=== PATIENT | male | born 1975 | race Caucasian/White ===

== ENCOUNTER → 2018-10-12 | Outpatient (CLI) | payer OTHER ==
[2018-10-12 09:39] LABS: HCT 47.4 % (39.0-53.0); HGB 15.9 gm/dL (13.0-17.5); MCH 30.9 pg (25.0-35.0); MCHC 33.6 g/dL (31.0-37.0); Mean Platelet Volume 6.2; Platelet Count 396 k/uL (150-450); RBC 5.15 m/uL (4.30-5.90); WBC 8.2 k/uL (3.8-10.6)
[2018-10-12 17:11] LABS: Albumin 4.9 g/dL (3.80-4.90); Albumin/Globulin Ratio 2.13 (1.20-2.10); Anion Gap 8.9 mmol/L (4.00-12.00); Calcium 9.8 mg/dL (8.7-10.3); Carbon Dioxide 24.1 mmol/L (21.6-31.8); Globulin 2.3 g/dL (2.1-3.7); Potassium 4.4 mmol/L (3.5-5.5); Total Bilirubin 1.2 mg/dL (0.2-1.2); Total Protein 7.2 g/dL (6.2-8.2)
== END | disposition home or self-care (01) ==
LOC: LABWHC1 08:33
PROVIDERS: ATTEND Family Medicine
DX: Z00.00 Encounter for general adult medical examination without abnormal findings (principal)
CPT/HCPCS: 36415; 80053; 80061; 84153; 85027

== ENCOUNTER → 2020-10-30 | Outpatient (CLI) | payer MEDICAID ==
[2020-10-30 08:40] LABS: HCT 49.9 % (39.0-53.0); HGB 17.4 gm/dL (13.0-17.5); MCH 32.4 pg (25.0-35.0); MCHC 34.9 g/dL (31.0-37.0); MCV 92.8 fL (80.0-100.0); Mean Platelet Volume 6.3; Platelet Count 376 k/uL (150-450); RBC 5.37 m/uL (4.30-5.90); RDW 12.5 % (11.5-15.5); WBC 9.6 k/uL (3.8-10.6)
[2020-10-30 17:03] LABS: African American GFR (CKD) 119.1 (60.0-200.0); Albumin/Globulin Ratio 1.92 (1.60-3.17); Anion Gap 7.4 mmol/L (4.00-12.00); BUN/Creat Ratio 12.22 Ratio (12.00-20.00); Calcium 9.7 mg/dL (8.7-10.3); Carbon Dioxide 26.6 mmol/L (21.6-31.8); Chol/HDL Ratio 3.63; Globulin 2.6 g/dL (1.6-3.3); LDL Cholesterol,Calculated 119.8 mg/dL (0.0-131.0); Non-African American GFR(CKD) 102.8 (60.0-200.0); Potassium 4.4 mmol/L (3.5-5.5); Total Bilirubin 1.4 mg/dL (0.3-1.2); Total Protein 7.6 g/dL (6.2-8.2); VLDL Calculation 17.2 mg/dL (5.00-40.00)
== END | disposition home or self-care (01) ==
LOC: LABWHC1 08:17
PROVIDERS: ATTEND Family Medicine
DX: Z00.01 Encounter for general adult medical examination with abnormal findings (principal)
CPT/HCPCS: 36415; 80053; 80061; 85027

== ENCOUNTER 2023-05-06 09:14 | Emergency (ER) | payer BC, MEDICAID ==
[2023-05-06 09:22] VITALS: RESP 18
--- NOTE | 2023-05-06 09:37 | ED ---
General Adult HPI - General Chief complaint: Neuro Symptoms/Deficit Stated complaint: R Side of Face Weakness/Swollen Time Seen by Provider: 05/06/23 09:30 Source: patient, RN notes reviewed, old records reviewed Mode of arrival: ambulatory Limitations: no limitations - History of Present Illness Initial comments: This is a 48-year-old male presents emergency Department with a past medical history significant for GERD. Patient comes in today stating that this morning about 8:30 he noticed that he had some right-sided facial tingling. Patient states he also has a right-sided facial droop. Patient states he did have some tongue tingling and numbness on Friday but he didn't seem to notice too much yesterday. Patient states he woke up at 5:00 and didn't feel any tingling he did not notice any facial droop because he did not look in the mirror. Patient denies any headache patient denies any weakness to any extremity patient denies any numbness to extremities. Patient denies any visual disturbance or speech disturbance. - Related Data Previous Rx's Medication Instructions Recorded predniSONE [Deltasone] 40 mg PO BID #14 tab 05/06/23 valACYclovir HCL [Valacyclovir] 1,000 mg PO TID #21 tab 05/06/23 Allergies Allergy/AdvReac Type Severity Reaction Status Date / Time No Known Allergies Allergy Verified 05/06/23 09:22 Review of Systems ROS Statement: Those systems with pertinent positive or pertinent negative responses have been documented in the HPI. ROS Other: All systems not noted in ROS Statement are negative. Past Medical History Past Medical History: GERD/Reflux History of Any Multi-Drug Resistant Organisms: None Reported Past Surgical History: No Surgical Hx Reported Past Psychological History: No Psychological Hx Reported Smoking Status: Never smoker Past Alcohol Use History: Occasional Past Drug Use History: None Reported General Exam - General Exam Comments Initial Comments: GENERAL: Patient is well-developed and well-nourished. Patient is nontoxic and well- hydrated and is in no acute distress. ENT: Neck is soft and supple. No significant lymphadenopathy is noted. Oropharynx is clear. Moist mucous membranes. Neck has full range of motion without eliciting any pain. EYES: The sclera were anicteric and conjunctiva were pink and moist. Extraocular movements were intact and pupils were equal round and reactive to light. Eyelids were unremarkable. PULMONARY: Unlabored respirations. Good breath sounds bilaterally. No audible rales rhonchi or wheezing was noted. CARDIOVASCULAR: There is a regular rate and rhythm without any murmurs gallops or rubs. Femoral pulses are equal bilaterally ABDOMEN: Soft and nontender with normal bowel sounds. No palpable organomegaly was noted. There is no palpable pulsatile mass. SKIN: Skin is clear with no lesions or rashes and otherwise unremarkable. NEUROLOGIC: Patient is alert and oriented x3. Patient has facial droop on the right side and it includes the forehead. Patient can feel light touch in the left arm and leg. Patient also can feel light touch in the right side of the face but feels different.. Normal speech, volume and content. Symmetrical smile. MUSCULOSKELETAL: Normal extremities with adequate strength and full range of motion. No lower extremity swelling or edema. No calf tenderness. LYMPHATICS: No significant lymphadenopathy is noted PSYCHIATRIC: Normal psychiatric evaluation. Limitations: no limitations Course Vital Signs 05/06/23 05/06/23 09:19 09:50 Temperature 99.5 F 98.2 F Pulse Rate 91 80 Respiratory 18 18 Rate Blood Pressure 138/93 115/85 O2 Sat by Pulse 97 98 Oximetry Medical Decision Making - Medical Decision Making EKG was interpreted by myself and shows a sinus rhythm at 70 bpm MD interval is 124 QRS is 90 QT interval 376 QTC is 410. Was pt. sent in by a medical professional or institution ([facility], WELFARE AIDE, urgent care, hospital, or half-way...) When possible be specific @ -No Did you speak to anyone other than the patient for history (EMS, parent, family, police, friend...)? What history was obtained from this source @ -No Did you review nursing and triage notes (agree or disagree)? Why? @ -I reviewed and agree with nursing and triage notes Were old charts reviewed (outside hosp., previous admission, EMS record, old EKG, old radiological studies, urgent care reports/EKG's, half-way records)? Report findings @ -No old charts were reviewed Differential Diagnosis (chest pain, altered mental status, abdominal pain women, abdominal pain men, vaginal bleeding, weakness, fever, dyspnea, syncope, headache, dizziness, GI bleed, back pain, seizure, CVA, palpatations, mental health, musculoskeletal)? @ -Differential CVA Ischemic stroke, hemorrhagic stroke, brain tumor, atypical migraine, Wernicke's encephalopathy, seizure, multiple sclerosis, meningitis, encephalitis, hypoglycemia, Guillain-Crespo, electrolytes disturbance, myasthenia gravis.... This is not meant to be an all-inclusive list EKG interpreted by me (3pts min.). @ -As above X-rays interpreted by me (1pt min.). @ -None done CT interpreted by me (1pt min.). @ -CAT scan of the brain shows no acute abnormality U/S interpreted by me (1pt. min.). @ -None done What testing was considered but not performed or refused? (CT, X-rays, U/S, labs)? Why? @ -None What meds were considered but not given or refused? Why? @ -None Did you discuss the management of the patient with other professionals (professionals i.e. , PA, WELFARE AIDE, lab, RT, psych nurse, social services, strategic account director, teacher, chief school finance officer, case supervisor)? Give summary @ -No Was smoking cessation discussed for >3mins.? @ -No Was critical care preformed (if so, how long)? @ -No Were there social determinants of health that impacted care today? How? (Homelessness, low income, unemployed, alcoholism, drug addiction, transportation, low edu. Level, literacy, decrease access to med. care, half-way, rehab)? @ -No Was there de-escalation of care discussed even if they declined (Discuss DNR or withdrawal of care, Hospice)? DNR status @ -No What co-morbidities impacted this encounter? (DM, HTN, Smoking, COPD, CAD, Cancer, CVA, ARF, Chemo, Hep., AIDS, mental health diagnosis, sleep apnea, morbid obesity)? @ -None Was patient admitted / discharged? Hospital course, mention meds given and route, prescriptions, significant lab abnormalities, going to OR and other pertinent info. @ -Demonstrates emergency department. Patient will be discharged home on similar with antivirals. Patient has complete paralysis of the right side of the face including forehead consistent with Zepeda's palsy. Patient also had symptoms of sensation of the tongue being abnormal since Friday. Undiagnosed new problem with uncertain prognosis? @ -No Drug Therapy requiring intensive monitoring for toxicity (Heparin, Nitro, Insulin, Cardizem)? @ -No Were any procedures done? @ -No Diagnosis/symptom? @ -Zepeda's palsy Acute, or Chronic, or Acute on Chronic? @ - Acute Uncomplicated (without systemic symptoms) or Complicated (systemic symptoms)? @ -Complicated Side effects of treatment? @ -No Exacerbation, Progression, or Severe Exacerbation? @ -No Poses a threat to life or bodily function? How? (Chest pain, USA, PA, pneumonia, PE, COPD, DKA, ARF, appy, cholecystitis, CVA, Diverticulitis, Homicidal, Suicidal, threat to staff... and all critical care pts) @ -No - Lab Data Result diagrams: 05/06/23 09:38 05/06/23 09:38 Lab Results 05/06/23 05/06/23 05/06/23 Range/Units 09:38 09:38 09:38 WBC 8.6 (3.8-10.6) k/uL RBC 5.39 (4.30-5.90) m/uL Hgb 17.3 (13.0-17.5) gm/dL Hct 50.3 (39.0-53.0) % MCV 93.4 (80.0-100.0) fL MCH 32.0 (25.0-35.0) pg MCHC 34.3 (31.0-37.0) g/dL RDW 12.6 (11.5-15.5) % Plt Count 343 (150-450) k/uL MPV 7.5 Neutrophils % 49 % Lymphocytes % 38 % Monocytes % 7 % Eosinophils % 3 % Basophils % 0 % Neutrophils # 4.3 (1.3-7.7) k/uL Lymphocytes # 3.3 (1.0-4.8) k/uL Monocytes # 0.6 (0-1.0) k/uL Eosinophils # 0.2 (0-0.7) k/uL Basophils # 0.0 (0-0.2) k/uL PT 10.5 (9.0-12.0) sec INR 1.0 (<1.2) APTT 25.5 (22.0-30.0) sec Sodium 139 (137-145) mmol/L Potassium 4.6 (3.5-5.1) mmol/L Chloride 106 (98-107) mmol/L Carbon Dioxide 22 (22-30) mmol/L Anion Gap 11 mmol/L BUN 8 L (9-20) mg/dL Creatinine 0.94 (0.66-1.25) mg/dL Est GFR (CKD-EPI)AfAm >90 (>60 ml/min/1.73 sqM) Est GFR (CKD-EPI)NonAf >90 (>60 ml/min/1.73 sqM) Glucose 103 H (74-99) mg/dL Calcium 9.8 (8.4-10.2) mg/dL Total Bilirubin 1.2 (0.2-1.3) mg/dL AST 49 (17-59) U/L ALT 91 H (4-49) U/L Alkaline Phosphatase 86 (38-126) U/L Total Protein 8.1 (6.3-8.2) g/dL Albumin 4.7 (3.5-5.0) g/dL Disposition Clinical Impression: Zepeda's palsy Disposition: HOME SELF-CARE Condition: Good Instructions (If sedation given, give patient instructions): Zepeda Palsy (ED) Prescriptions: predniSONE [Deltasone] 40 mg PO BID #14 tab valACYclovir HCL [Valacyclovir] 1,000 mg PO TID #21 tab Is patient prescribed a controlled substance at d/c from ED?: No Referrals: Leoncio Field MD [Primary Care Provider] - 1-2 days Time of Disposition: 11:36
[2023-05-06 09:52] VITALS: TEMP 98.2
[2023-05-06 10:02] LABS: Basophils % (A) 0 %; Eosinophils # (A) 0.2 k/uL (0-0.7); Eosinophils % (A) 3 %; HCT 50.3 % (39.0-53.0); HGB 17.3 gm/dL (13.0-17.5); Lymphocytes # (A) 3.3 k/uL (1.0-4.8); Lymphocytes % (A) 38 %; MCHC 34.3 g/dL (31.0-37.0); MCV 93.4 fL (80.0-100.0); Mean Platelet Volume 7.5; Monocytes # (A) 0.6 k/uL (0-1.0); Monocytes % (A) 7 %; Neutrophils # (A) 4.3 k/uL (1.3-7.7); Neutrophils % (A) 49 %; Platelet Count 343 k/uL (150-450); RBC 5.39 m/uL (4.30-5.90); RDW 12.6 % (11.5-15.5); WBC 8.6 k/uL (3.8-10.6)
--- NOTE | 2023-05-06 10:03 | CT ---
EXAMINATION TYPE: CT brain wo con DATE OF EXAM: 05/06/2023 COMPARISON: None INDICATION: RT side facial weakness and swelling. Not called a code stroke DLP: 1125.4 mGycm, Automated exposure control for dose reduction was used. CONTRAST: None CT of the brain is performed utilizing 3 mm thick sections through the posterior fossa and 3 mm thick sections through the remaining calvarium. Study is performed within 24 hours of arrival to the hosp ital. No abnormal hyperdensity is present to suggest an acute intracranial hemorrhage. No mass lesion is evident. No acute infarcts are evident. Ventricles and sulci are appropriate for the patient age. Paranasal sinuses and mastoid air cells within the [id number] are clear. IMPRESSIONS: 1. No acute intracranial process. Follow-up MRI can be performed as clinically indicated.
--- NOTE | 2023-05-06 10:08 | XR ---
EXAMINATION TYPE: XR chest 2V DATE OF EXAM: 05/06/2023 COMPARISON: 07/12/2019 INDICATION: Right facial numbness and altered mental status TECHNIQUE: Frontal and lateral views of the chest are obtained. FINDINGS: The heart size is normal. The pulmonary vasculature is normal. The lungs are clear. IMPRESSION: 1. No acute pulmonary process.
[2023-05-06 10:20] LABS: ALT 91 U/L (4-49); AST 49 U/L (17-59); African American GFR (CKD) >90 (>60 ml/min/1.73 sqM); Albumin 4.7 g/dL (3.5-5.0); Alkaline Phosphatase 86 U/L (38-126); Anion Gap 11 mmol/L; Blood Urea Nitrogen 8 mg/dL (9-20); Calcium 9.8 mg/dL (8.4-10.2); Carbon Dioxide 22 mmol/L (22-30); Chloride 106 mmol/L (98-107); Glucose 103 mg/dL (74-99); Non-African American GFR(CKD) >90 (>60 ml/min/1.73 sqM); Potassium 4.6 mmol/L (3.5-5.1); Sodium 139 mmol/L (137-145); Total Bilirubin 1.2 mg/dL (0.2-1.3); Total Protein 8.1 g/dL (6.3-8.2)
[2023-05-06 10:35] LABS: Partial Thromboplastin Time 25.5 sec (22.0-30.0); Prothrombin Time 10.5 sec (9.0-12.0)
[2023-05-06] MEDS ORDERED: predniSONE 20 MG TAB PO STA (10:49)
[2023-05-06 12:16] VITALS: BP 114/81; PULSE 96
== END 2023-05-06 12:15 | disposition home or self-care (01) ==
LOC: EC 09:14
DX: G51.0 Bell's palsy (principal)
CPT/HCPCS: 36415; 93005; 80053; 84484; 85025; 85610; 85730; 71046; 70450; 99284; J7512